=== PATIENT | female | born 1980 | race Caucasian/White ===

== ENCOUNTER 2016-03-17 18:10 | Outpatient (CLI) | payer OTHER ==
[~2016-03-17] VITALS: Ht 175.3 cm; Wt 127.0 kg
[~2016-03-17 18:10] MED LIST: ACET325T96 PO; PRENTAB26 PO
[2016-03-17] MEDS ORDERED: NVLNI (19:39)
[2016-03-17] MEDS ORDERED: NYSTOIN5 (19:40)
[2016-03-17 19:42] VITALS: Ht 175.3 cm; Wt 127.0 kg
[2016-03-18] MEDS ORDERED: RANI150T3 PO (12:11)
--- NOTE | 2016-03-19 14:28 | EDITING REQUIRED CODING QUERY ---
STEWARD INSERTION Nursing notes in EMR for 03/17/16 indicate that a cervical dilator was inserted. Please clarify below if this was performed: ( x ) Cervical dilator was inserted BRIEF DESCRIPTION: Steward balloon for ripening placed. Nst performed. ( ) Cervical dilatory was not inserted. ( ) Other, please clarify: Thank you for your assistance, Spring Lam - Ticket Manager
== END 2016-03-17 20:30 | disposition home or self-care (01) ==
LOC: C.OPB 18:10 → C.LD 18:10 → C.OPB 20:30
PROVIDERS: ATTEND Obstetrics & Gynecology
DX: O24.419 Gestational diabetes mellitus in pregnancy, unspecified control (principal); Z3A.39 39 weeks gestation of pregnancy

== ENCOUNTER 2016-03-18 03:08 | Inpatient (IN) | payer OTHER ==
[~2016-03-18] VITALS: Ht 175.3 cm; Wt 125.2 kg
[~2016-03-18 03:08] MED LIST changes: -ACET325T96 PO; +NVLNI; +NYSTOIN5
[2016-03-18] MEDS ORDERED: DEXTROSE 5% 1000ML 1,000 ML IV SCH (08:52)
[2016-03-18] MEDS ORDERED: LACTATED RINGER'S 1000ML 500 ML IV PRN (08:52)
[2016-03-18] MEDS ORDERED: SODIUM CHLORIDE 0.9% 1000ML 1,000 ML IV SCH (08:52)
[2016-03-18] MEDS ORDERED: LACTATED RINGER'S 1000ML 1,000 ML IV PRN (08:52)
[2016-03-18] MEDS ORDERED: LACTATED RINGER'S 1000ML 1,000 ML IV SCH ×2 (08:52→16:00)
[2016-03-18] MEDS ORDERED: OXYTOCIN 30 UNITS/500ML NSS IV PRN ×2 (09:00→14:45)
[2016-03-18] MEDS ORDERED: DEXTROSE 50% 50 ML SYR IV PRN (09:00)
[2016-03-18 09:19] LABS: MEAN CELL VOLUME 89.7 fL (80-100); MEAN CORPUSCULAR HEMOGLOBIN 30.5 pg (25-34); MEAN PLATELET VOLUME 11.2 fL (7.4-10.4); PLATELET COUNT 202 K/uL (130-400); WHITE BLOOD COUNT 10.35 K/uL (4.8-10.8)
[2016-03-18] MEDS: INSULIN REGULAR 250 UNITS in SODIUM CHLORIDE 0.9% 250ML 250 ML IV PRN ×3 (10:05→14:15)
[2016-03-18 11:35] VITALS: Ht 175.3 cm; Wt 125.2 kg
[2016-03-18] MEDS ORDERED: RANI150T3 PO (12:11)
[2016-03-18] MEDS ORDERED: BUPIVACAINE 0.25% 30 ML VIAL ONE (14:01)
[2016-03-18] MEDS ORDERED: FENTANYL 2MCG/ML ROPIV 1.25MG/ML 100ML BAG EPI ONE (14:01)
[2016-03-18] MEDS ORDERED: EpHEDrine SULFATE INJ 50 MG/ML AMP ONE (14:01)
[2016-03-18] MEDS ORDERED: FENTANYL CITRATE INJ 50 MCG/1 ML 2 ML VIAL ONE (14:02)
[2016-03-18] MEDS ORDERED: LANOLIN OINT EXT PRN ×2 (14:45)
[2016-03-18] MEDS ORDERED: SUPERCREAM 0.870 % 15GM JAR EXT PRN (14:45)
[2016-03-18] MEDS ORDERED: ACETAMINOPHEN 325 MG TAB PO PRN (14:45)
[2016-03-18] MEDS ORDERED: DIPHTHERIA/TETANUS/PERTUSSIS 0.5 ML SYR/VIAL IM. ONE (14:45)
[2016-03-18] MEDS ORDERED: BENZOCAINE 20% AER SPR 82.5 GM CAN EXT PRN (14:45)
[2016-03-18] MEDS ORDERED: OXYCODONE/ACETAMINOPHEN 5-325 TAB PO PRN (14:45)
[2016-03-18] MEDS ORDERED: HYDROCORTISONE ACETATE 25 MG SUPP PR PRN (14:45)
--- NOTE | 2016-03-18 15:10 | DELIVERY SUMMARY ---
DATE OF OPERATION: 03/18/2016 PREOPERATIVE DIAGNOSIS: 1. Morris intrauterine at 40 weeks. 2. A2 gestational diabetes. 3. Group B strep negative. POSTOPERATIVE DIAGNOSIS: Same. PROCEDURE: Spontaneous vaginal delivery. SURGEON: Dr. Mahoney. ASSIST: None. ESTIMATED BLOOD LOSS: 750 cc. FINDINGS: Infant in the OA position. Placenta spontaneous and intact with a 3-vessel cord. COMPLICATIONS: None. DISPOSITION: Stable in labor and delivery. DESCRIPTION: Poonam Vigil is a 3 para 1-0-1-1 who presented at 40 weeks for induction of labor due to A2 gestational diabetes on insulin. She was ripened with a Gonzalez bulb the night before and was 3 cm on presentation. Pitocin augmentation was started and her artificial rupture of membranes was performed. She reached complete dilation with strong urge to push and I was called for delivery. As she was unmedicated, she was involuntarily pushing as I prepped her for delivery, and she rapidly delivered the head of the followed by the remainder of the body with no difficulty as soon as I could be ready with gloves and gown on. The was placed on the maternal abdomen and the cord was doubly clamped and cut. Placenta delivered spontaneously and was intact with 3vc. No lacerations required repair. Brisk vaginal bleeding followed that responded only partially to fundal massage and pitocin, so 1000mcg of [place] cytotec was administered with patient consent. The bleeding was noted to slow appreciably. I attest to the content of the Intraoperative Record and any orders documented therein. Any exceptions are noted below. MTDD
[2016-03-18] MEDS ORDERED: MISOPROSTOL 200 MCG TAB ONE (15:12)
[2016-03-18] MEDS: IBUPROFEN 600 MG TAB PO PRN (15:26)
[2016-03-18 17:15] VITALS: BP 114/68; PULSE 88; TEMP 36.6
[2016-03-18] MEDS: DOCUSATE SODIUM 100 MG CAP PO SCH (20:00)
[2016-03-18 20:01] VITALS: BP 141/81; PULSE 100; TEMP 36.7
[2016-03-18 23:48] VITALS: BP 118/79; PULSE 88; TEMP 36.4
[2016-03-19] MEDS: IBUPROFEN 600 MG TAB PO PRN ×3 (03:32→12:28)
[2016-03-19 03:43] VITALS: BP 114/75; PULSE 80; TEMP 36.4
[2016-03-19 06:51] LABS: HEMATOCRIT 29.3 % (37-47)
--- NOTE | 2016-03-19 06:52 | Progress Note ---
Subjective Mar 19, 2016. Subjective conversation w/ patient, physical exam Ambulation: ambulating normally Voiding: no voiding problems Passing Gas: Yes Diet Tolerance: Regular Diet Lochia: Small Feeding Type: Breast Feeding Pain: No pain reported this morning Review of Systems Constitutional: No chills, No fever Respiratory: No cough Cardiac: No chest pain Breast: No breast pain Abdomen: No nausea, No pain, No vomiting Female : No dysuria Objective Vital Signs Date Time Temp Pulse Resp B/P Pulse Ox O2 Delivery O2 Flow Rate FiO2 03/19/16 03:43 36.4 80 18 114/75 Room Air 03/18/16 23:49 Room Air 03/18/16 23:48 36.4 88 18 118/79 Room Air 03/18/16 20:01 36.7 100 18 141/81 Room Air 03/18/16 17:15 36.6 88 20 114/68 Room Air Physical Exam General Appearance: WELL-APPEARING, WD/WN, NO APPARENT DISTRESS Respiratory/Chest: lungs clear, normal breath sounds Cardiovascular: regular rate, rhythm, no gallop, no murmur Abdomen: normal bowel sounds, non tender, soft Fundus: Firm, Relation to Umbilicus (At umbilicus) Extremities: no calf tenderness Laboratory Results Last 24 Hours Test 03/18/16 09:03 03/18/16 09:12 03/18/16 09:53 03/18/16 11:03 White Blood Count 10.35 K/uL Red Blood Count 3.90 M/uL Hemoglobin 11.9 g/dL Hematocrit 35.0 % Mean Corpuscular Volume 89.7 fL Mean Corpuscular Hemoglobin 30.5 pg Mean Corpuscular Hemoglobin Concent 34.0 g/dl RDW Standard Deviation 43.9 fL RDW Coefficient of Variation 13.5 % Platelet Count 202 K/uL Mean Platelet Volume 11.2 fL Bedside Glucose 88 mg/dl 85 mg/dl 77 mg/dl Test 03/18/16 12:01 03/18/16 13:10 03/18/16 14:12 03/19/16 06:35 Bedside Glucose 82 mg/dl 91 mg/dl 104 mg/dl Medications Current Inpatient Medications Medications (Trade) Dose Ordered Sig/Lesley Route Start Time Stop Time Status Last Admin Dose Admin Sodium Chloride 1,000 ml @ 100 mls/hr Q10H IV 03/18/16 08:52 04/17/16 08:51 Dextrose 1,000 ml @ 100 mls/hr Q10H IV 03/18/16 08:52 04/17/16 08:51 03/18/16 09:20 100 MLS/HR Insulin Human Regular/Sodium Chloride (novoLIN-R/Nss 250ml) 252.5 ml @ 0 mls/hr Q0M PRN IV 03/18/16 08:52 04/17/16 08:51 03/18/16 14:15 1 MLS/HR Dextrose (Dextrose 50% 50ML Syringe) 25-50mL of 50% DW IV ... UD PRN IV 03/18/16 09:00 04/17/16 08:59 Oxytocin 30 units 30 units UD PRN IV 03/18/16 09:00 04/17/16 08:59 03/18/16 09:31 30 UNITS Lactated Ringer's 500 ml @ 999 mls/hr Q31M PRN IV 03/18/16 08:52 04/17/16 08:51 Lactated Ringer's (Lr 1000ml) 1,000 ml @ 125 mls/hr Q8H IV 03/18/16 16:00 04/17/16 15:59 Benzocaine (Dermoplast Aero Spr) 1 appln PRN PRN EXT 03/18/16 14:45 04/17/16 14:44 03/18/16 18:32 82.5 APPLN Cocaine HCl (Supercream 0.870% Cr) BID PRN EXT 03/18/16 14:45 04/01/16 14:44 Hydrocortisone Acetate (Anusol Hc Supp) 25 mg BID PRN IA 03/18/16 14:45 04/17/16 14:44 Lanolin (Lanolin Oint) PRN PRN EXT 03/18/16 14:45 04/17/16 14:44 Prenat Multivit/ Bache/Iron/Folic Ac ( Vitamin Tab) 1 tab DAILY PO 03/19/16 08:00 04/18/16 07:59 Ibuprofen (Motrin Tab) 600 mg Q4H PRN PO 03/18/16 14:45 04/17/16 14:44 03/19/16 03:32 600 MG Acetaminophen (Tylenol Tab) 650 mg Q6H PRN PO 03/18/16 14:45 2/8/17 14:44 Oxycodone/ Acetaminophen (Percocet 5-325MG Tab) 1 tab Q4H PRN PO 03/18/16 14:45 04/01/16 14:44 Docusate Sodium (coLACE CAP) 100 mg BID PO 03/18/16 20:00 04/17/16 19:59 03/18/16 20:00 100 MG Ferrous Sulfate (Feosol Tab) 325 mg DAILY PO 03/19/16 08:00 04/18/16 07:59 Assessment and Plan Post- Day#: 1 Continue Routine Care: - Vital Signs reviewed and WNL (temp max 36.4) - Blood Type: A+, GBS-, Rubella Immune - Patient doing well clinically - Encourage Ambulation today - Pain well controlled - Tolerating PO Diet - Discharge today Resident Physician Supervision Note: I interviewed and examined the patient. Discussed with Dr. Hernandez and agree with findings and plan as documented in the note. Any exceptions or clarifications are listed here: Patient desires discharge rick. Strongly recc she stay 24hr and having baby boy circumcised today anyway, but will place D/C order so she can leave this PM. Discussed risk of hemorrhage in first 24hr after delivery with the heavier bleeding she had at delivery, and gave parameters for calling or returning. Documented By: Alma Rosa Mahoney
--- NOTE | 2016-03-19 06:53 | Discharge Instructions ---
Discharge Instructions Admission Reason for Admission: Induction Discharge Discharge Diagnosis / Problem: Vaginal Delivery Discharge Goals Goal(s): Routine recovery after delivery Medications Continue Dispensed Medications: supercream, dermaplast, tucks, lansinoh Activity Recommendations Activity Limitations: per Instructions/Follow-up section . Instructions / Follow-Up Instructions / Follow-Up ACTIVITY RECOMMENDATIONS: * Gradual return to full activity over the next 2-3 weeks. * No lifting - nothing heavier than baby over the next 2-3 weeks. * Do not engage in vigorous exercise, sexual activity or sports until cleared by your physician. * Do not drive or operate any motorized equipment until cleared by your physician. * You may shower/bathe daily. MEDICATIONS: For discomfort or pain, you may use Acetaminophen (Tylenol), Ibuprofen (Advil), or Naproxen (Aleve) following the package directions. For constipation you may use Colace following the package directions. BREAST CARE: If you are not breast feeding: * Wear a supportive bra 24 hours a day for one to two weeks. * Avoid stimulating your breasts and nipples as much as possible during the first few weeks after delivery. * When taking a shower, have the warm water hit your back, not breasts. * When your breasts feel full, apply ice packs. Usually three to four times a day helps ease the discomfort. * Take a mild pain medication (Tylenol / Motrin) when you are uncomfortable. If breast feeding: * Use breast milk to lubricate nipples. Lansinoh cream may be used for sore nipples. You do not need to remove cream prior to breast feeding. If using a different brand of cream, check the label for directions regarding removal of cream prior to nursing. * Wear a supportive bra. * If having problems with breasts or breast feeding, call a business transformation consultant or your health care provider. EPISIOTOMY CARE: After delivery, if you have an episiotomy (stitches), the following steps will ease discomfort and aid healing. * For the first 24 hours after delivery, place ice packs next to your episiotomy to help reduce swelling. * After the first 24 hour-period, sitz baths, either portable or in the tub, are suggested. A shower with a shower arm sprayed over the episiotomy may be comforting. * Emmanuelle care should be done after each voiding and bowel movement. Squirt warm water from a plastic bottle over the perineum (region of the body between the anus and urinary opening) and pat dry. * Use Dermoplast to ease discomfort. Shake container. [place] directly over the episiotomy. Place a Tucks on a clean sanitary pad next to your episiotomy. SPECIAL CARE INSTRUCTIONS: When you are discharged from the hospital, it is important for you to follow the instructions listed below: * During the first week at home, you should be able to care for yourself and your baby. In addition, the usual light household activities are encouraged. * Limit your activities to the way you feel. Do not try to clean the house or move furniture. Be sensible. * If you actively engage in sports and have done so up until the time of your delivery, you may resume these activities as soon as you feel able. This may take up to one month or even longer. Use good judgment. * Continue to take your vitamins for at least six weeks after the of your baby. * Your diet need not be limited unless you were on a special diet before your delivery. Breast-feeding mothers need around 2500 calories per day and at least 64-80 ounces of fluid per day (8 to 10 glasses). * You should eat foods from the four major food groups. Crash diets or fad diets are to be avoided. Eating lean meats, fresh fruits and vegetables, low-fat dairy products, high fiber foods and a regular exercise program, will help you get back to your pre- weight without putting your health at risk. * Constipation is sometimes a problem after delivery. Take a mild laxative as needed. If breast feeding, Milk of Magnesia is acceptable to use. You may use a suppository or Fleets enema if no episiotomy. * A daily shower or tub bath is suggested. Be sure to thoroughly and gently dry the perineum. * A bloody vaginal discharge will usually continue until around four weeks post . A small amount of bleeding may continue for as long as six weeks. Vaginal discharge changes from the bright red bleeding after delivery to pink then brownish and finally yellowish-pink before becoming white and disappearing. * Bleeding may increase with activity. Your first period may come in 4-8 weeks. If you are breast feeding, your period may be delayed even longer. * Dearing (sex) can begin whenever both you and your partner feel comfortable and do not have any form of genital infection. It is recommended that you wait at least six weeks for internal and external healing to occur. If you have questions, please talk to your health care practitioner. A condom should be used to prevent infection and . * Foreplay, gentle intercourse and lubrication is very important the first several times to prevent pain. A water-based lubricant such as K-Y jelly or Astroglide may be used. * If you have RH negative blood and your baby is RH positive, you will receive RHOGAM by injection prior to discharge. The nurse will give you a card to keep with you that has the date and place that you received RHOGAM after delivery. * During your care, you had a Rubella screen done to check for the presence of rubella antibodies in your blood. If your test was negative, you will receive a Rubella vaccine prior to discharge. This vaccine may cause a fever, soreness at the injection site and flu-like symptoms. If these symptoms persist, notify your health care practitioner. is not advised for one month after a Rubella vaccine. * Verbalizes understanding of car seat law as reviewed with patient nursing. * Car Seat hand-out given and reviewed with patient by nursing. * Shaken baby information reviewed with patient by nursing. Call you doctor if: * Heavy bleeding (saturating several pads an hour) or passing clots the size of your fist. * A fever >101 degrees F (38.3 degrees C) on two occasions four hours apart and /or chills. * Unusual pain in the pelvic or vaginal areas. * "Baby Blues" lasting longer than two weeks. If you have any questions or concerns, call your health care practitioner at . FOLLOW UP VISIT: * Please call the office at to schedule a 6 week examination. It is important you keep this appointment. It is important for you to make arrangements for either yearly or twice yearly check-ups thereafter. Current Hospital Diet Patient's current hospital diet: Regular OB Diet Discharge Diet Recommended Diet: Regular Diet Pending Studies Studies pending at discharge: no Medical Emergencies . Who to Call and When: Medical Emergencies: If at any time you feel your situation is an emergency, please call 911 immediately. . Non-Emergent Contact Non-Emergency issues call your: Security Technician . . "Provider Documentation" section prepared by Kenneth Hernandez. VTE Core Measure Inpt VTE Proph given/why not?: Treatment not indicated
[2016-03-19 07:30] VITALS: BP 104/69; PULSE 89; TEMP 36.5
[2016-03-19] MEDS ORDERED: PRENATAL VITAMIN TAB PO SCH (08:00)
[2016-03-19] MEDS ORDERED: FERROUS SULFATE 325 MG TAB PO SCH (08:00)
[2016-03-19] MEDS: DOCUSATE SODIUM 100 MG CAP PO SCH (08:22)
[2016-03-19 12:15] VITALS: BP 101/66; PULSE 82; TEMP 36.4
[2016-03-19 16:10] VITALS: BP_DIAS 66; PULSE 82; TEMP 36.4
== END 2016-03-19 16:10 | disposition home or self-care (01) | DRG 774 ==
LOC: C.LD 08:10 → C.OBG 17:38
PROVIDERS: ADMIT Obstetrics & Gynecology; ATTEND Obstetrics & Gynecology
PROC: 10E0XZZ Delivery of Products of Conception, External Approach (ICD-10-PCS; principal; 2016-03-18)
PROC: 3E033VJ Introduction of Other Hormone into Peripheral Vein, Percutaneous Approach (ICD-10-PCS; principal; 2016-03-18)
PROC: 10H073Z Insertion of Monitoring Electrode into Products of Conception, Via Natural or Artificial Opening (ICD-10-PCS; principal; 2016-03-18)
DX: O24.429 Gestational diabetes mellitus in childbirth, unspecified control (principal); O67.9 Intrapartum hemorrhage, unspecified; Z37.0 Single live birth; Z3A.40 40 weeks gestation of pregnancy

== ENCOUNTER → 2016-08-07 | Outpatient (CLI) | payer OTHER ==
[~2016-08-07] MED LIST changes: -NVLNI; -NYSTOIN5
== END | disposition home or self-care (01) ==
LOC: C.LAB1850 16:13
PROVIDERS: ATTEND Physician Assistant
DX: J02.0 Streptococcal pharyngitis (principal)

== ENCOUNTER → 2016-11-27 | Outpatient (CLI) | payer OTHER ==
--- NOTE | 2016-11-27 09:04 | DIAGNOSTIC IMAGING REPORT ---
LEFT KNEE 1 OR 2 VIEWS ROUTINE CLINICAL HISTORY: M25.562 Left knee [id number] pain COMPARISON: None. DISCUSSION: The bones and joint spaces appear intact. There is no evidence of fracture, dislocation or bony disease. There is no evidence for soft tissue swelling. IMPRESSION: Negative study. The above report was generated using voice recognition software. It may contain grammatical, syntax or spelling errors. Electronically signed by: Tomás Ocampo M.D. 11/27/2016 9:03 AM Dictated Date/Time: 11/27/2016 9:03 AM
== END | disposition home or self-care (01) ==
LOC: C.RAD1850 08:49
PROVIDERS: ATTEND Physician Assistant
DX: M25.562 Pain in left knee (principal)

== ENCOUNTER 2019-08-13 05:30 | Observation (INO) ==
--- NOTE | 2019-07-27 09:57 | PAT Medication Instructions ---
Medication Instructions Date of Service July 27, 2019 Home Medications Medication Instructions Recorded cholecalciferol (vitamin D3) 1,250 50,000 units PO WEEKLY #8 cap 06/23/20 mcg (50,000 unit) capsule norethindrone (contraceptive) 0.35 mg tablet 0.35 mg PO QPM cholecalciferol (vitamin D3) 1,250 mcg (50,000 unit) capsule 50,000 units PO WEEKLY duloxetine 30 mg PO QPM esomeprazole magnesium [Nexium] 20 mg PO QAM meloxicam 15 mg PO DAILY PRN ASK your surgeon for instructions norethindrone (contraceptive) 0.35 mg tablet 0.35 mg PO QPM meloxicam 15 mg PO DAILY PRN DO NOT take the morning of surgery cholecalciferol (vitamin D3) 1,250 mcg (50,000 unit) capsule 50,000 units PO WEEKLY Take morning of surgery With a small sip of water, OTHERWISE NOTHING TO EAT OR DRINK AFTER MIDNIGHT: esomeprazole magnesium [Nexium] 20 mg PO QAM Take evening before surgery duloxetine 30 mg PO QPM Other Notes If you have any questions please call us at [phone] or [phone] or [phone] or [phone]
--- NOTE | 2019-07-29 09:46 | Anesthesiology Consultation ---
Date of Service July 29, 2019 Assessment & Plan (1) Encounter for pre-operative examination: Per PAT assessment on 07/29/19: Travel screen- negative. No known Covid positive contacts. No history of Covid testing. No current Covid related symptoms. - Check test AM DOS Chart Review Chart Review: Acceptable Risk for Surgery and Patient seen in Pre Admission Testing Teaching & Discussion Pre-Anesthesia Teaching/Discussion Notes: Instructed NPO after midnight before surgery,except medications with 15 cc of water. Medication instructions provi ded according to the PAT guidelines. History Surgery Operation Date: 08/13/19 07:30 Proposed Procedures p Robotic Total Laparoscopic Hysterectomy - David Pitts Jr, MD, FACOG Height/Weight Height: 5 ft 9 in Weight: 130.5 kg Allergies Allergy/AdvReac Type Severity Reaction Status Date / Time No Known Allergies Allergy Verified 07/19/19 15:03 Medications Home Medications Medication Instructions Recorded Confirmed Last Taken norethindrone (contraceptive) 0.35 0.35 mg PO QPM 02/14/19 07/19/19 04/05/19 22:00 mg tablet cholecalciferol (vitamin D3) 1,250 50,000 units PO WEEKLY #8 cap 06/24/19 07/19/19 Unknown mcg (50,000 unit) capsule duloxetine 30 mg PO QPM 07/12/19 07/19/19 Unknown esomeprazole magnesium [Nexium] 20 mg PO QAM 07/12/19 07/19/19 Unknown meloxicam 15 mg PO DAILY PRN 07/12/19 07/19/19 Unknown Past Medical History Medical History Adenocarcinoma in situ (AIS) of uterine cervix Anxiety and depression Cervical intraepithelial glandular neoplasia, grade III GERD (gastroesophageal reflux disease) controlled Migraine Morbid obesity with BMI of 40.0-44.9, adult Exercise / Class Metabolic Activity II 4-5 Yardwork/Stairs/Walk up hill Past Family History Family History Grandmother (Maternal) Diabetes Thyroid disease Stroke Mother , age 61 Brain cancer Giant cell glioblastoma of the brain; grade 4 Family history of reaction to anesthesia nausea/vomiting Hypertension Thyroid disease Grandfather (Maternal) Diabetes Father Hypertension Diabetes Aunt Thyroid disease Sister Overweight Brother Overweight Denies family history of Ovarian cancer Prostate cancer Myocardial infarction Breast cancer Colorectal cancer Past Surgical History Surgical History History of colposcopy History of conization of cervix History of esophagogastroduodenoscopy (EGD) History of gynecologic surgery D&E History of wisdom tooth extraction under local Past Anesthesia History No Hx of Anesthesia Complications Mother: had significant PONV, no similar issues for patient History of PONV No Hx of PONV and Hx of Motion Sickness (occasional) Social History Smoking Status: Former smoker tobacco type: cigarettes Do You Dip or Chew Tobacco: No Smoking End Date: QUIT 12 YRS AGO Hx Alcohol Use: Yes Alcohol type: beer, wine and hard liquor alcohol intake frequency: a few times a week Alcohol Intake Frequency Comment: 2 DRINKS PER WEEK Hx Substance Use: No substance use type: does not use Review of Systems Reflux controlled. Patient denies chest pain, shortness of breath, dyspnea on exertion, fever, chills, cough, wheezing, palpitations. Physical Exam Vital Signs VITALS BP 118/84 P 96 TEMP 98.3 SP02 97%RA RESP 18 PHYSICAL Full neck and c-spine range of motion. Full TMJ range of motion. TMD 3 finger breaths Mallampati Score 3 Dentition: intact, several caps/crowns on molars Lungs: clear throughout to auscultation Cardiac: regular rate and rhythm, no murmurs noted Spine: normal Carotid arteries: negative bruit Extremities: no edema Testing Laboratory Results 07/29/19 10:04 07/29/19 10:04 Blood Type A Positive 07/29/19 10:04 Antibody Screen NEGATIVE 07/29/19 10:04 Electrocardiogram Date: 07/29/19 NSR with sinus arrhythmia at 92bpm. *unconfirmed report
[2019-07-29 12:21] LABS: Basophils # (auto) 0.02 K/uL (0-0.2); Basophils % (auto) 0.4 %; Eosinophils # (auto) 0.07 K/uL (0-0.5); Eosinophils % (auto) 1.4 %; Hematocrit (blood only) 39.4 % (37-47); Hemoglobin 13.1 g/dL (12.0-16.0); Immature Granulocytes # (auto) 0.02 K/uL (0.00-0.02); Immature Granulocytes % (auto) 0.4 %; Lymphocytes # (auto) 1.51 K/uL (1.2-3.4); Lymphocytes % (auto) 29.8 %; Mean Corpuscular Hemoglobin 30.7 pg (25-34); Mean Corpuscular Hgb Conc 33.2 g/dL (32-36); Mean Corpuscular Volume 92.3 fL (80-100); Mean Platelet Volume 11.2 fL (7.4-10.4); Monocytes # (auto) 0.31 K/uL (0.11-0.59); Monocytes % (auto) 6.1 %; Neutrophils # (auto) 3.14 K/uL (1.4-6.5); Neutrophils % (auto) 61.9 %; Platelet Count 300 K/uL (130-400); RDW Coefficient of Variation 12.8 % (11.5-14.5); RDW Standard Deviation 43.1 fL (36.4-46.3); Red Blood Count 4.27 M/uL (4.2-5.4); White Blood Count 5.07 K/uL (4.8-10.8)
[2019-07-29 12:31] LABS: BUN Creatinine Ratio 19.6 (10-20); Calcium 9.1 mg/dl (8.5-10.1); Creatinine Clr Calc Pharmacy 147.6 ml/min; Est GFR (African American) 117.2; Est GFR (Non-African American) 101.1; Potassium 3.8 mmol/L (3.5-5.1)
--- NOTE | 2019-07-29 16:25 | Electrocardiogram Report ---
Test Reason : Blood Pressure : / mmHG Vent. Rate : 092 BPM Atrial Rate : 092 BPM P-R Int : 160 ms QRS Dur : 090 ms QT Int : 350 ms P-R-T Axes : 068 078 065 degrees QTc Int : 432 ms Normal sinus rhythm with sinus arrhythmia Normal ECG No previous ECGs available Confirmed by Jonh Malloy ([id number]) on 07/29/2019 4:25:32 PM Referred By: David Pitts Confirmed By:Martin Malloy
[2019-08-13] MEDS ORDERED: LR 15ML/HR IV SCH (06:00)
[2019-08-13] MEDS ORDERED: PHENAZOPYRIDINE HCL 200 MG TAB PO PRN (06:00)
[2019-08-13] MEDS ORDERED: LACTATED RINGER'S 1,000 ML IV SCH ×2 (06:00→11:22)
[2019-08-13] MEDS ORDERED: LIDOCAINE HCL 2% 2 ML VIAL/AMP(20MG/ML) INFIL ONE (06:30)
[2019-08-13] MEDS ORDERED: NEOSTIGMINE METHYLSULFATE 5 MG/5 ML SYR ONE (06:30)
[2019-08-13] MEDS ORDERED: PROPOFOL IV EMULSION 10 MG/ML 20 ML VIAL IV ONE (06:30)
[2019-08-13] MEDS ORDERED: GLYCOPYRROLATE 0.2 MG/ML VIAL ONE (06:30)
[2019-08-13] MEDS ORDERED: ROCURONIUM BROMIDE 10 MG/ML 5 ML VIAL ONE ×2 (06:30→08:16)
[2019-08-13] MEDS ORDERED: DEXAMETHASONE SOD INJ 4 MG/ML VIAL ONE (06:30)
[2019-08-13] MEDS ORDERED: ONDANSETRON INJ 2 MG/ML 2 ML VIAL ONE ×2 (06:30→09:40)
[2019-08-13] MEDS ORDERED: fentaNYL citrate 100 MCG/2 ML VIAL ONE ×2 (06:31→08:13)
[2019-08-13] MEDS ORDERED: MIDAZOLAM HCL 1 MG/ML 2ML VIAL ONE (06:31)
[2019-08-13] MEDS ORDERED: BUPIVACAINE 0.5 % 5 MG/1 ML MPF 30ML VIAL ONE (07:01)
--- NOTE | 2019-08-13 07:04 | History & Physical Bridge Note ---
Date of Service August 13, 2019 History & Physical Bridge Note I have examined the patient, reviewed the History & Physical and in the interval since the performance of the History & Physical I have noted the following changes of clinical significance: The patient's COVID 19 test was negative.
[2019-08-13] MEDS ORDERED: ePHEDrine sulfate 50 MG/ML AMP IV PRN (07:23)
[2019-08-13] MEDS ORDERED: ATROPINE SULFATE 0.1 MG/ML 10ML SYR IV PRN (07:23)
[2019-08-13] MEDS ORDERED: HYDROmorphone INJ 2 MG/ML SYR/VIAL IV PRN (07:23)
[2019-08-13] MEDS ORDERED: PROMETHAZINE HCL 6.25 MG in SODIUM CHLORIDE 0.9% 50 ML IV PRN (07:23)
[2019-08-13] MEDS ORDERED: fentaNYL citrate 100 MCG/2 ML VIAL IV PRN (07:23)
[2019-08-13] MEDS ORDERED: ONDANSETRON INJ 2 MG/ML 2 ML VIAL IV PRN ×2 (07:23→11:22)
[2019-08-13] MEDS: CEFAZOLIN 3000MG 72.5 ML IV SCH ×2 (07:34→07:47)
[2019-08-13] MEDS: TISSEEL FIBRIN SEALANT 10ML TOP ONE ×2 (09:10→10:03)
--- NOTE | 2019-08-13 10:05 | Post Operative Brief Note ---
PG Immediate Post Op with CF Date of Surgery August 13, 2019 Pre & Post Diagnosis Operation Date: 08/13/19 07:30 Pre-Op Diagnosis: History of Cervical AIS Post-Op Diagnosis: Same I identified the patient and participated in the time-out.: Yes Procedure Operation Date: 08/13/19 07:30 Actual Procedures p Robotic Assisted Total Laparoscopic Hysterectomy(Not Applicable) - David Pitts Jr, MD, FACOG 2) Bilateral salpingectomy 3) Cystoscopy Surgeon David Pitts Jr, MD, FACOG Food Service Attendant [place] Estimated Blood Loss 100 Findings See Below (multiparous uterus, normal appearing tubes and ovaries bilaterally; TLH and bilateral salpongectomy, postprocedure cystoscopy with bilateral ureteral jets) Specimens Specimen Description: Permanent Specimen A: Uterus, Cervix and Bilateral Fallopian tubes Drains Gonzalez Catheter (inserted by Dr. Pitts at start of case, draining clear yellow urine, inserted without difficulty)
--- NOTE | 2019-08-13 10:55 | Anesthesiology Progress Note ---
Date of Service August 13, 2019 Anesthesia Post Procedure Vital Signs Vital Signs: Temp Pulse Pulse Resp BP Pulse Ox 08/13/19 10:45 63 16 120/76 94 08/13/19 10:35 65 16 124/65 99 08/13/19 10:25 68 20 113/56 L 100 08/13/19 10:15 36 C L 70 16 119/66 100 08/13/19 05:50 37.5 C 107 H 16 134/91 97 Pain Intensity Abdomen: Pain Intensity: 6 Transfer of Care Handoff Completed per policy Notes Mental Status: alert / awake / arousable Patient Amnestic to Procedure: Yes Nausea / Vomiting: adequately controlled Pain: adequately controlled Airway Patency, RR, SpO2: stable & adequate BP & HR: stable & adequate Hydration State: stable & adequate Anesthetic Complications: no major complications apparent
[2019-08-13] MEDS ORDERED: KETOROLAC 30 MG/ML VIAL IV PRN (11:22)
[2019-08-13] MEDS ORDERED: ACETAMINOPHEN 325 MG TAB PO PRN (11:22)
[2019-08-13] MEDS ORDERED: OXYCODONE/ACETAMINOPHEN 5mg/325mg TAB PO PRN ×2 (11:22)
[2019-08-13] MEDS ORDERED: MEPERIDINE HCL 50 MG/ML CARP IV PRN (11:22)
--- NOTE | 2019-08-13 11:33 | Operative Report (OR) ---
DATE OF OPERATION: 08/13/2019 PREOPERATIVE DIAGNOSIS: History of adenocarcinoma in situ of the cervix. POSTOPERATIVE DIAGNOSIS: History of adenocarcinoma in situ of the cervix. PROCEDURES PERFORMED: 1. Total laparoscopic hysterectomy. 2. Bilateral salpingectomy. 3. Post-procedure cystoscopy. SURGEON: David Pitts MD. ENGINE HOSTLER: Victoria Hightower MD. ANESTHESIA: General. FINDINGS: Laparoscopic examination of the pelvis showed a normal-appearing multiparous uterus with normal-appearing tubes and ovaries bilaterally. Total laparoscopic hysterectomy with bilateral salpingectomy performed. Post-procedure cystoscopy showed bilateral ureteral jets consistent with ureteral patency. PROCEDURE IN DETAIL: The patient was taken to the operating room and after general anesthesia, was padded, prepped and draped for a laparoscopic hysterectomy. Gonzalez catheter was inserted into the bladder, which remained there throughout the procedure. Single tooth tenaculum was used to grasp the anterior lip of the cervix. Cervical stay sutures of 0 Vicryl were placed at 12 and 3 o'clock on the cervix. Cervical os was dilated with Arnold dilators and the [employer] uterine manipulator was inserted into the uterus and insufflated with air. This was fastened to the stay sutures and snugged into place. Tenaculum was removed. A small Veress needle was introduced into the pelvic cavity, which was then insufflated with 3 liters of CO2. Under direct laparoscopic guidance, a 12 mm operative port was placed supraumbilically. Under direct laparoscopic guidance, the robotic ports and assistants' ports were placed. Robot brought to the table and successfully docked, through arm #1 was the monopolar scissors, through arm #2 was the bipolar cautery instrument, through arm #3 was the ProGrasp. Surgeon went to the operative consult. Ureters were identified bilaterally. Bilateral salpingectomy were performed using the monopolar scissors cutting along the mesosalpingectomy. Specimens were removed and sent for pathological evaluation. The left round ligament was cauterized and cut opening the anterior leaf of the broad ligament, which was taken down over the level of the bladder. Uterine vessels were skeletonized and then the uterine vessels were cauterized in 3 contiguous orourke with the bipolar cautery instrument. Dissection was then turned to the right hand side. Round ligament was cauterized and cut opening the anterior leaf of the broad ligament, which was taken down to join the contralateral side. Uterine vessels were skeletonized and then cauterized with the bipolar cautery instrument. Uterine vessels were cut. Cardinal and uterosacral ligaments were then cauterized and cut. Dissection was turned back to the left, uterine vessels were cut. Cardinal and uterosacral ligaments were cauterized and cut. A posterior colpotomy incision was made by cutting down on the VCare in a circumferential fashion around the VCare, exercising the uterus from the pelvis. The vaginal cuff was then closed with 2-0 Vicryl V-Loc suture running from the angles to the midline doubling back. The sutures were removed. The pelvis was irrigated with 1000 mL of warm saline. All pedicles were inspected for hemostasis, which was present. Postprocedure cystoscopy was then performed. Gonzalez catheter was removed. A cystoscope was inserted into the bladder. Both ureteral orifices were visualized and bilateral ureteral jets were seen. No evidence of sutures in the bladder. A new Gonzalez catheter was placed into the bladder. The robot was undocked and taken from the patient and all laparoscopic ports were removed. Gas was removed. Incisions were injected with 1% Marcaine solution. The skin incisions were then closed with 4-0 Monocryl subcuticular sutures. Sterile dressings were applied. The patient was taken out of dorsal lithotomy and to the recovery room in satisfactory condition. I attest to the content of the Intraoperative Record and any orders documented therein. Any exception s are noted below.
[2019-08-13] MEDS: IBUPROFEN 600 MG TAB PO PRN ×2 (16:06→20:07)
--- NOTE | 2019-08-13 20:04 | Gynecologic Progress Note ---
Date of Service August 13, 2019 Assessment & Plan (1) Adenocarcinoma in situ (AIS) of uterine cervix: - discussed surgery and findings with patient - able to ambulate, keep liquids down and void - desires d/c - instructions/Rx sent - f/u in 2 weeks for post-op check Admission and Anticipated Discharge Date Admission Date: August 13, 2019 Subjective able to eat and void Results & Data ([facility]) Vital Signs (Past 12 Hours) Vital Signs Temp Pulse Pulse Resp BP Pulse Ox 08/13/19 13:15 108 H 18 132/78 98 08/13/19 12:15 82 18 123/79 97 08/13/19 11:45 74 18 124/65 93 08/13/19 11:15 98.1 F 78 20 140/65 91 08/13/19 10:55 97.7 F 78 16 130/72 96 08/13/19 10:45 63 16 120/76 94 08/13/19 10:35 65 16 124/65 99 08/13/19 10:25 68 20 113/56 L 100 08/13/19 10:15 96.8 F L 70 16 119/66 100 PG Care Time/CCT Total # of Minutes Spent Total Time Spent with Patient: Total time spent is greater than 50% in coordin ation of care (as documented) at patient's floor/unit and/or counseling patient: Coding Level of Care Code None Diagnoses Adenocarcinoma in situ (AIS) of uterine cervix D06.9
--- NOTE | 2019-08-13 20:04 | Discharge Summary ---
Date of Service August 13, 2019 Admission HPI Per Admitting Provider The patient is a 38-year-old 3 para 2 AB1, on progesterone only pill, who presents today for preoperative evaluation. Patient is scheduled for a total laparoscopic hysterectomy with bilateral salpingectomy and postprocedure cystoscopy for history of adenocarcinoma in situ of the cervix. The patient was diagnosed with AIS in 2012 on cone biopsy. At that time she had not had any children. The patient was evaluated by clinical social work therapist Oncology who recommended deferring definitive surgical therapy in till the patient had completed childbearing. After the of her 2nd child the patient had an LGSIL Pap. She was of evaluated by me and clinical social work therapist Oncology with a colposcopy and both times the biopsies were negative. The patient has had negative Pap smears since that time. The patient has completed her childbearing and wishes definitive surgical therapy for the AIS. Discharge Data Procedures Performed Operation Date: 08/13/19 07:30 Actual Procedures p Robotic Assisted Total Laparoscopic Hysterectomy(Not Applicable) - David Pitts Jr, MD, [facility] [place] Hospital Course (1) Adenocarcinoma in situ (AIS) of uterine cervix: On the day of admission the patient was taken to the OR and underwent the listed procedures. Operative findings revealed a multiparous uterus with normal appearing tubes and ovaries bilaterally. TLH with bilateral salpingectomy performed. Post-operatively the patient did well. She was able to ambulate, keep liquids down and void. She was d/c'd home with the routine d/c instructions and the above listed Rx's. She will follow up in the office in 2 weeks for a postop check, but she has been advised to call with any questions, problems or difficulties. Coding Level of Care Code None Diagnoses Adenocarcinoma in situ (AIS) of uterine cervix D06.9
== END 2019-08-13 20:30 | disposition home or self-care (01) ==
LOC: ASU 05:30 → 4N 05:30